=== PATIENT | male | born 1995 | race Caucasian/White ===

== ENCOUNTER 2018-04-13 21:44 | Emergency (ER) | payer OTHER ==
[~2018-04-13] VITALS: Ht 167.6 cm; Wt 99.8 kg
== END 2018-04-14 02:05 | disposition home or self-care (01) ==
LOC: ER 21:44
DX: R00.2 Palpitations (principal)

== ENCOUNTER 2020-11-15 06:39 | Emergency (ER) | payer OTHER ==
[~2020-11-15] VITALS: Ht 167.6 cm; Wt 93.0 kg
== END 2020-11-15 13:10 | disposition home or self-care (01) ==
LOC: ER 06:39
DX: R10.32 Left lower quadrant pain (principal)